=== PATIENT | male | born 1965 | race African-American/Black ===

== ENCOUNTER 2019-09-02 12:38 | Inpatient (IN) | payer OTHER ==
[2019-09-02 12:56] VITALS: BMI 28.7
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
[2019-09-02] MEDS ORDERED: chlordiazePOXIDE HCL 25 MG CAPSULE PO PRN (14:35)
[2019-09-02] MEDS ORDERED: MENTHOL/PHENOL 1 EACH UD MM PRN (14:35)
[2019-09-02] MEDS ORDERED: MAGNESIUM CITRATE 300 ML BOTTLE PO PRN (14:35)
[2019-09-02] MEDS ORDERED: ACETAMINOPHEN 325 MG TABLET (FP) PO PRN ×2 (14:35)
[2019-09-02] MEDS ORDERED: MAGNESIUM HYDROX 2400MG/30ML ORAL SUSPENSION 30 ML CUP PO PRN (14:35)
[2019-09-02] MEDS ORDERED: MAG HYDROX/AL HYDROX/SIMETH 30 ML UNIT-DOSE CUP PO PRN (14:35)
[2019-09-02] MEDS ORDERED: BISMUTH SUBSALICYLATE 262 MG/15 ML BTL PO PRN (14:35)
[2019-09-02] MEDS ORDERED: IBUPROFEN 400 MG TABLET (FP) PO PRN (14:35)
[2019-09-02] MEDS: METHOCARBAMOL 500 MG TABLET PO PRN ×2 (15:57→22:19)
[2019-09-02] MEDS: chlordiazePOXIDE HCL 25 MG CAPSULE PO SCH ×2 (17:17→22:06)
[2019-09-02] MEDS: TOLNAFTATE 1% CREAM 15 GM TUBE TP SCH (22:06)
[2019-09-02] MEDS: cloNIDine HCL 0.1 MG TABLET PO SCH (22:06)
[2019-09-02] MEDS: THIAMINE HCL 100 MG TABLET (FP) PO SCH (22:06)
[2019-09-02] MEDS: MELATONIN 5 MG TABLETS PO PRN (22:08)
[2019-09-02] MEDS: VITAMINS A AND D TOPICAL OINTMENT 60 GM TUBE TP SCH (22:22)
[2019-09-03] MEDS: chlordiazePOXIDE HCL 25 MG CAPSULE PO SCH ×4 (06:02→22:49)
[2019-09-03] MEDS: METHOCARBAMOL 500 MG TABLET PO PRN ×2 (06:02→18:03)
--- NOTE | 2019-09-03 09:01 | EKG ---
Test Reason : Blood Pressure : / mmHG Vent. Rate : 056 BPM Atrial Rate : 056 BPM P-R Int : 166 ms QRS Dur : 098 ms QT Int : 440 ms P-R-T Axes : 062 040 055 degrees QTc Int : 424 ms SINUS BRADYCARDIA VOLTAGE CRITERIA FOR LEFT VENTRICULAR HYPERTROPHY ABNORMAL ECG NO PREVIOUS ECGS AVAILABLE Confirmed by ALEXY GARZA MD ([id number]) on 09/03/2019 9:01:15 AM Referred By: Confirmed By:ALEXY GARZA MD
[2019-09-03 09:56] LABS: HEMATOCRIT 37.2 % (35.4-49); HEMOGLOBIN 12.1 GM/dL (11.7-16.9); MCH 30.7 pg (25.7-33.7); MCHC 32.4 g/dl (32.0-35.9); MEAN CELL VOLUME 94.8 fl (80-96); MEAN PLT VOLUME 8.7 fl (7.5-11.1); PLATELET COUNT 295 K/MM3 (134-434); RBC 3.93 M/mm3 (4.00-5.60); RDW 14.2 % (11.9-15.9); WHITE BLOOD COUNT 4.2 K/mm3 (4.0-10.0)
[2019-09-03 10:02] LABS: ALBUMIN 3.9 g/dl (3.4-5.0); BILIRUBIN,TOTAL 0.3 mg/dL (0.2-1); BLOOD UREA NITROGEN 14.2 mg/dL (7-18); CALCIUM 8.8 mg/dL (8.5-10.1); CREATININE 1.1 mg/dL (0.55-1.3); POTASSIUM 4.2 mmol/L (3.5-5.1); TOT PROT 6.9 g/dl (6.4-8.2)
[2019-09-03] MEDS: cloNIDine HCL 0.1 MG TABLET PO SCH ×2 (10:18→22:49)
[2019-09-03] MEDS: PRENATAL VITAMINS W/ FOLIC ACID TABLET (FP) PO SCH (10:18)
[2019-09-03] MEDS: TOLNAFTATE 1% CREAM 15 GM TUBE TP SCH ×2 (10:18→23:17)
--- NOTE | 2019-09-03 11:39 | PN ---
S CIWA - CIWA Score Nausea/Vomitin-No Nausea/No Vomiting Muscle Tremors: 3 Anxiety: 3 Agitation: 3 Paroxysmal Sweats: 3 Orientation: 0-Oriented Tacttile Disturbances: 0-None Auditory Disturbances: 0-None Visual Disturbances: 0-None Headache: 0-None Present CIWA-Ar Total Score: 12 S Progress Note (SOAP) Subjective: sweats shakes irritable interrupted sleep Objective: 09/03/19 11:45 Vital Signs Temperature 96.8 F L 09/03/19 09:33 Pulse Rate 75 09/03/19 09:33 Respiratory Rate 17 09/03/19 09:33 Blood Pressure 154/89 09/03/19 09:33 O2 Sat by Pulse Oximetry (%) Laboratory Tests 09/03/19 09/03/19 05:30 05:30 WBC 4.2 RBC 3.93 L Hgb 12.1 Hct 37.2 MCV 94.8 MCH 30.7 MCHC 32.4 RDW 14.2 Plt Count 295 MPV 8.7 Sodium 140 Potassium 4.2 Chloride 109 H Carbon Dioxide 26 Anion Gap 5 L BUN 14.2 Creatinine 1.1 Est GFR (CKD-EPI)AfAm 87.74 Est GFR (CKD-EPI)NonAf 75.70 Random Glucose 88 Calcium 8.8 Total Bilirubin 0.3 AST 14 L ALT 26 Alkaline Phosphatase 48 Total Protein 6.9 Albumin 3.9 aaox3 ambulating no acute distress Assessment: 09/03/19 11:45 withdrawals Plan: continue detox increase fluids
[2019-09-03] MEDS: hydrOXYzine PAMOATE 25 MG CAPSULE (FP) PO PRN (11:51)
[2019-09-03] MEDS: VITAMINS A AND D TOPICAL OINTMENT 60 GM TUBE TP SCH ×2 (15:38→23:18)
[2019-09-03] MEDS: THIAMINE HCL 100 MG TABLET (FP) PO SCH (22:49)
[2019-09-03] MEDS: MELATONIN 5 MG TABLETS PO PRN (22:50)
[2019-09-04] MEDS: chlordiazePOXIDE HCL 25 MG CAPSULE PO SCH ×4 (05:42→23:35)
[2019-09-04] MEDS: METHOCARBAMOL 500 MG TABLET PO PRN ×2 (05:43→21:35)
[2019-09-04] MEDS: PRENATAL VITAMINS W/ FOLIC ACID TABLET (FP) PO SCH (10:08)
[2019-09-04] MEDS: TOLNAFTATE 1% CREAM 15 GM TUBE TP SCH ×2 (10:09→21:36)
[2019-09-04] MEDS: VITAMINS A AND D TOPICAL OINTMENT 60 GM TUBE TP SCH ×2 (10:09→21:36)
[2019-09-04] MEDS: cloNIDine HCL 0.1 MG TABLET PO SCH (10:09)
[2019-09-04 10:47] LABS: URINE APPEARANCE CLEAR; URINE BILIRUBIN NEGATIVE (NEGATIVE); URINE COLOR YELLOW; URINE GLUCOSE (UA) NEGATIVE (NEGATIVE); URINE KETONE NEGATIVE (NEGATIVE); URINE LEUK ESTERASE NEGATIVE (NEGATIVE); URINE NITRITE NEGATIVE (NEGATIVE); URINE PROTEIN NEGATIVE (NEGATIVE); URINE UROBILINOGEN 0.2 mg/dL (0.2-1.0)
--- NOTE | 2019-09-04 15:02 | PN ---
[facility] CIWA - CIWA Score Nausea/Vomitin-Mild Nausea/No Vomiting Muscle Tremors: 2 Anxiety: 2 Agitation: 2 Paroxysmal Sweats: 2 Orientation: 0-Oriented Tacttile Disturbances: 0-None Auditory Disturbances: 0-None Visual Disturbances: 0-None Headache: 0-None Present CIWA-Ar Total Score: 9 S Progress Note (SOAP) Subjective: Sweat, knees hurting, nausea, feels a little unsteady (refused cane, patient seen ambulating in hallway with steady gait), interrupted sleep Objective: 09/04/19 14:57 Last Vital Signs Temp Pulse Resp BP Pulse Ox 98.2 F 83 18 158/89 09/04/19 09:31 09/04/19 09:31 09/04/19 09:31 09/04/19 09:31 Elevated b/p: has htn, presently on clonidine bid (noncompliant with home medication) Laboratory Tests 09/03/19 09/03/19 09/03/19 05:30 05:30 05:30 WBC 4.2 RBC 3.93 L Hgb 12.1 Hct 37.2 MCV 94.8 MCH 30.7 MCHC 32.4 RDW 14.2 Plt Count 295 MPV 8.7 Sodium 140 Potassium 4.2 Chloride 109 H Carbon Dioxide 26 Anion Gap 5 L BUN 14.2 Creatinine 1.1 Est GFR (CKD-EPI)AfAm 87.74 Est GFR (CKD-EPI)NonAf 75.70 Random Glucose 88 Calcium 8.8 Total Bilirubin 0.3 AST 14 L ALT 26 Alkaline Phosphatase 48 Total Protein 6.9 Albumin 3.9 Urine Color Urine Appearance Urine pH Ur Specific [place] Urine Protein Urine Glucose (UA) Urine Ketones Urine Blood Urine Nitrite Urine Bilirubin Urine Urobilinogen Ur Leukocyte Esterase RPR Titer Nonreactive 09/04/19 08:10 WBC RBC Hgb Hct MCV MCH MCHC RDW Plt Count MPV Sodium Potassium Chloride Carbon Dioxide Anion Gap BUN Creatinine Est GFR (CKD-EPI)AfAm Est GFR (CKD-EPI)NonAf Random Glucose Calcium Total Bilirubin AST ALT Alkaline Phosphatase Total Protein Albumin Urine Color Yellow Urine Appearance Clear Urine pH 5.0 Ur Specific [place] 1.010 Urine Protein Negative Urine Glucose (UA) Negative Urine Ketones Negative Urine Blood Negative Urine Nitrite Negative Urine Bilirubin Negative Urine Urobilinogen 0.2 Ur Leukocyte Esterase Negative RPR Titer Labs reviewed Assessment: 09/04/19 15:02 Withdrawal sxs Noted with HTN Plan: Continue detox Encouraged PO water intak HTN: noncompliant with medication, change bid clonidine to q8hr prn, follow up with PCP post discharge for management
[2019-09-04] MEDS: THIAMINE HCL 100 MG TABLET (FP) PO SCH (21:36)
[2019-09-04] MEDS: MELATONIN 5 MG TABLETS PO PRN (21:36)
[2019-09-05] MEDS ORDERED: chlordiazePOXIDE HCL 10 MG CAPSULE PO PRN
[2019-09-05] MEDS: hydrOXYzine PAMOATE 25 MG CAPSULE (FP) PO PRN ×3 (01:08→21:15)
[2019-09-05] MEDS: chlordiazePOXIDE HCL 10 MG CAPSULE PO SCH ×4 (06:14→22:19)
[2019-09-05] MEDS: METHOCARBAMOL 500 MG TABLET PO PRN ×2 (06:15→21:15)
--- NOTE | 2019-09-05 09:54 | PN ---
S CIWA - CIWA Score Nausea/Vomitin-Mild Nausea/No Vomiting Muscle Tremors: 1-None Visible, but [place] Anxiety: 1-Mildly Anxious Agitation: 1-Slight > Activity Paroxysmal Sweats: No Perspiration Orientation: 0-Oriented Tacttile Disturbances: 1-Very Mild Itch/Numbness Auditory Disturbances: 0-None Visual Disturbances: 0-None Headache: 1-Very Mild CIWA-Ar Total Score: 6 BHS Progress Note (SOAP) Subjective: alert,irritable,anxious,interrupted sleep Objective: 09/05/19 09:53 Vital Signs Temperature 98.1 F 09/05/19 05:00 Pulse Rate 76 09/05/19 05:00 Respiratory Rate 20 09/05/19 05:00 Blood Pressure 171/101 H 09/05/19 05:00 O2 Sat by Pulse Oximetry (%) Assessment: 09/05/19 09:53 withdrawal symptom Plan: continue detox librium regimen,discharg ein am
[2019-09-05] MEDS: PRENATAL VITAMINS W/ FOLIC ACID TABLET (FP) PO SCH (10:06)
[2019-09-05] MEDS: VITAMINS A AND D TOPICAL OINTMENT 60 GM TUBE TP SCH ×2 (10:07→22:20)
[2019-09-05] MEDS: TOLNAFTATE 1% CREAM 15 GM TUBE TP SCH ×2 (15:21→22:20)
[2019-09-05] MEDS: cloNIDine HCL 0.1 MG TABLET PO PRN (17:01)
[2019-09-05] MEDS: MELATONIN 5 MG TABLETS PO PRN (22:19)
[2019-09-05] MEDS: THIAMINE HCL 100 MG TABLET (FP) PO SCH (22:19)
[2019-09-06] MEDS ORDERED: chlordiazePOXIDE HCL 10 MG CAPSULE PO SCH (05:00)
[2019-09-06] MEDS: METHOCARBAMOL 500 MG TABLET PO PRN (05:21)
[2019-09-06] MEDS: cloNIDine HCL 0.1 MG TABLET PO PRN (05:21)
[2019-09-06 08:36] VITALS: TEMP 98.1
[2019-09-06 08:40] VITALS: BP 142/82; PULSE 73
--- NOTE | 2019-09-06 09:28 | DS ---
[facility] Detox Discharge Summary Admission Date: 09/02/19 Discharge Date: 09/06/19 - History Present History: Alcohol Dependence, Opioid Dependence - Physical Exam Results Vital Signs: Vital Signs Temperature 98.1 F 09/06/19 05:00 Pulse Rate 73 09/06/19 07:38 Respiratory Rate 18 09/06/19 07:38 Blood Pressure 142/82 09/06/19 07:38 O2 Sat by Pulse Oximetry (%) Pertinent Admission Physical Exam Findings: Vital Signs Temperature 98.1 F 09/06/19 05:00 Pulse Rate 73 09/06/19 07:38 Respiratory Rate 18 09/06/19 07:38 Blood Pressure 142/82 09/06/19 07:38 O2 Sat by Pulse Oximetry (%) Laboratory Tests 09/03/19 09/03/19 09/03/19 05:30 05:30 05:30 WBC 4.2 RBC 3.93 L Hgb 12.1 Hct 37.2 MCV 94.8 MCH 30.7 MCHC 32.4 RDW 14.2 Plt Count 295 MPV 8.7 Sodium 140 Potassium 4.2 Chloride 109 H Carbon Dioxide 26 Anion Gap 5 L BUN 14.2 Creatinine 1.1 Est GFR (CKD-EPI)AfAm 87.74 Est GFR (CKD-EPI)NonAf 75.70 Random Glucose 88 Calcium 8.8 Total Bilirubin 0.3 AST 14 L ALT 26 Alkaline Phosphatase 48 Total Protein 6.9 Albumin 3.9 Urine Color Urine Appearance Urine pH Ur Specific [place] Urine Protein Urine Glucose (UA) Urine Ketones Urine Blood Urine Nitrite Urine Bilirubin Urine Urobilinogen Ur Leukocyte Esterase RPR Titer Nonreactive 09/04/19 08:10 WBC RBC Hgb Hct MCV MCH MCHC RDW Plt Count MPV Sodium Potassium Chloride Carbon Dioxide Anion Gap BUN Creatinine Est GFR (CKD-EPI)AfAm Est GFR (CKD-EPI)NonAf Random Glucose Calcium Total Bilirubin AST ALT Alkaline Phosphatase Total Protein Albumin Urine Color Yellow Urine Appearance Clear Urine pH 5.0 Ur Specific [place] 1.010 Urine Protein Negative Urine Glucose (UA) Negative Urine Ketones Negative Urine Blood Negative Urine Nitrite Negative Urine Bilirubin Negative Urine Urobilinogen 0.2 Ur Leukocyte Esterase Negative RPR Titer aaox3 ambulating no acute distress - Treatment Hospital Course: Detox Protocol Followed, Detoxed Safely, Responded well, Discharged Condition Good, Rehab Referral Accepted Patient has Accepted a Rehab Referral to: pt referred to [facility] OTP - Medication Discharge Medications: Ambulatory Orders NK [No Known Home Medication] 09/02/19 - Diagnosis (1) ADHD Current Visit: Yes Status: Acute (2) Alcohol dependence with uncomplicated withdrawal Current Visit: Yes Status: Chronic (3) Anxiety and depression Current Visit: Yes Status: Acute (4) Dry skin Current Visit: Yes Status: Acute (5) Heroin abuse Current Visit: No Status: Suspected (6) Tinea pedis Current Visit: Yes Status: Acute - AMA Did Patient Leave Against Medical Advice: No
[2019-09-06] MEDS: PRENATAL VITAMINS W/ FOLIC ACID TABLET (FP) PO SCH (10:27)
[2019-09-06] MEDS: TOLNAFTATE 1% CREAM 15 GM TUBE TP SCH (10:28)
[2019-09-06] MEDS: VITAMINS A AND D TOPICAL OINTMENT 60 GM TUBE TP SCH (10:28)
[2019-09-07] MEDS ORDERED: chlordiazePOXIDE HCL 10 MG CAPSULE PO ONE (05:00)
== END 2019-09-06 10:52 | disposition home or self-care (01) | DRG 773 ==
LOC: YASAS 12:38 → Y6N 14:47
PROVIDERS: ADMIT Allergy & Immunology; ATTEND Allergy & Immunology
PROC: HZ2ZZZZ Detoxification Services for Substance Abuse Treatment (ICD-10-PCS; principal; 2019-09-02)
DX: F10.230 Alcohol dependence with withdrawal, uncomplicated (principal); F11.10 Opioid abuse, uncomplicated; F90.9 Attention-deficit hyperactivity disorder, unspecified type; F32.9 Major depressive disorder, single episode, unspecified; F41.9 Anxiety disorder, unspecified; I10 Essential (primary) hypertension; L98.8 Other specified disorders of the skin and subcutaneous tissue; B35.3 Tinea pedis; E78.5 Hyperlipidemia, unspecified; J45.909 Unspecified asthma, uncomplicated; Z91.018 Allergy to other foods; Z91.14 Patient's other noncompliance with medication regimen; Z56.0 Unemployment, unspecified
CPT/HCPCS: 36415; 71046-TC-FY; 80053; 81003; 85027; 86593; 93005; 93010; J0735

== ENCOUNTER 2019-10-17 13:24 | Inpatient (IN) | payer OTHER ==
--- NOTE | 2019-10-17 13:45 | BHS.RME ---
Substance Use & Tx History - Substance Use History Opiates (Heroin) Substance amount: 8 bags Frequency of use: Daily Substance route: Inhalation (ex: sniffing or snorting) Date of Last Use: 10/17/19 Alcohol Substance amount: 2 x 40 ounce plus 6 pack x 16 ounce Frequency of use: More than 3 times per week Substance route: Oral Date of Last Use: 10/15/19 Physical/Psych/Mental Status - Behavior Eye Contact: Normal - Cooperativeness Cooperativeness: Cooperative - Thinking Thought Processes: Tight Thought content: Future oriented - Physical Health Problems Is patient presently having any pain?: No Does patient presently have any injuries (include location): No Does patient currently have a fever: No COWS - Scale Resting Pulse: 0= [place] 80 or Below Sweatin= Chills/Flushing Restless Observation: 1= Difficult to Sit Still Pupil Size: 0= Normal to Room Light Bone or Joint Aches: 1= Mild Discomfort Runny Nose/ Eye Tearin= Nasal Congestion GI Upset > 30mins: 0= None Tremor Observation: 0= None Yawning Observation: 0= None Anxiety or Irritability: 1=Feels Anxious/Irritable Goose Flesh Skin: 0=Smooth Skin COWS Score: 5
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
[2019-10-17] MEDS ORDERED: cloNIDine HCL 0.1 MG TABLET PO PRN (15:19)
[2019-10-17] MEDS ORDERED: MAGNESIUM CITRATE 300 ML BOTTLE PO PRN (15:19)
[2019-10-17] MEDS ORDERED: MENTHOL/PHENOL 1 EACH UD MM PRN (15:19)
[2019-10-17] MEDS ORDERED: MAGNESIUM HYDROX 2400MG/30ML ORAL SUSPENSION 30 ML CUP PO PRN (15:19)
[2019-10-17] MEDS ORDERED: MAG HYDROX/AL HYDROX/SIMETH 30 ML UNIT-DOSE CUP PO PRN (15:19)
[2019-10-17] MEDS ORDERED: chlordiazePOXIDE HCL 25 MG CAPSULE PO PRN (15:19)
[2019-10-17] MEDS ORDERED: ACETAMINOPHEN 325 MG TABLET (FP) PO PRN ×2 (15:19)
[2019-10-17] MEDS ORDERED: BISMUTH SUBSALICYLATE 262 MG/15 ML BTL PO PRN (15:19)
[2019-10-17] MEDS ORDERED: METHADONE HCL 10 MG TABLET (FOR DETOX USE ONLY) PO ONE (15:39)
[2019-10-17 15:54] VITALS: BMI 29.8
[2019-10-17] MEDS: chlordiazePOXIDE HCL 25 MG CAPSULE PO SCH ×2 (16:52→22:07)
[2019-10-17 18:17] LABS: ALBUMIN 3.5 g/dl (3.4-5.0); BILIRUBIN,TOTAL 0.3 mg/dL (0.2-1); BLOOD UREA NITROGEN 13.1 mg/dL (7-18); CALCIUM 8.8 mg/dL (8.5-10.1); CREATININE 1.2 mg/dL (0.55-1.3); POTASSIUM 3.9 mmol/L (3.5-5.1); TOT PROT 6.7 g/dl (6.4-8.2)
[2019-10-17 19:04] LABS: HEMATOCRIT 32.5 % (35.4-49); HEMOGLOBIN 10.8 GM/dL (11.7-16.9); MCH 31.2 pg (25.7-33.7); MCHC 33.1 g/dl (32.0-35.9); MEAN CELL VOLUME 94.2 fl (80-96); MEAN PLT VOLUME 7.9 fl (7.5-11.1); PLATELET COUNT 289 K/MM3 (134-434); RBC 3.46 M/mm3 (4.00-5.60); RDW 14.6 % (11.9-15.9); WHITE BLOOD COUNT 3.8 K/mm3 (4.0-10.0)
[2019-10-17] MEDS: THIAMINE HCL 100 MG TABLET (FP) PO SCH (22:07)
[2019-10-17] MEDS: MELATONIN 5 MG TABLETS PO PRN (22:07)
[2019-10-17] MEDS: METHOCARBAMOL 500 MG TABLET PO PRN (23:01)
[2019-10-17] MEDS: hydrOXYzine PAMOATE 25 MG CAPSULE (FP) PO PRN (23:01)
[2019-10-18] MEDS: chlordiazePOXIDE HCL 25 MG CAPSULE PO SCH ×4 (05:42→22:07)
[2019-10-18] MEDS ORDERED: METHADONE HCL 10 MG TABLET (FOR DETOX USE ONLY) ONE (08:41)
[2019-10-18] MEDS ORDERED: METHADONE HCL 5 MG TABLET (FOR DETOX USE ONLY) ONE (08:42)
[2019-10-18] MEDS ORDERED: cloNIDine HCL 0.1 MG TABLET PO PRN (08:54)
--- NOTE | 2019-10-18 08:58 | PN ---
[facility] CIWA - CIWA Score Nausea/Vomitin-No Nausea/No Vomiting Muscle Tremors: 4-Moderate,w/Arms Extend Anxiety: 4-Mod. Anxious/Guarded Agitation: 0-Normal Activity Paroxysmal Sweats: 2 Orientation: 1-Uncertain about Date Tacttile Disturbances: 0-None Auditory Disturbances: 0-None Visual Disturbances: 1-Very Mild Sensitivity Headache: 0-None Present CIWA-Ar Total Score: 12 S COWS - Scale Resting Pulse: 0= [place] 80 or Below Sweatin= Chills/Flushing Restless Observation: 0= Sits Still Pupil Size: 1= Pupils >than Normal Bone or Joint Aches: 1= Mild Discomfort Runny Nose/ Eye Tearin= None GI Upset > 30mins: 0= None Tremor Observation of Outstretched Hands: 2= Slight Tremor Visible Yawning Observation: 0= None Anxiety or Irritability: 0= None Goose Flesh Skin: 3=Piloerection COWS Score: 8 S Progress Note (SOAP) Subjective: 53 years old male admitted on 10/17/19 for alcohol and opiate withdrawal sx management treating with librium and methadone detox regiments c/o fungal toes dry flaky white skin peeling between toes clotrimazole cream c/o dry skin dry rough skin on hands and elbow a and d ointment Objective: 10/18/19 08:58 Vital Signs Temperature 98.4 F 10/18/19 06:40 Pulse Rate 65 10/18/19 06:40 Respiratory Rate 18 10/18/19 06:40 Blood Pressure 153/96 10/18/19 06:40 O2 Sat by Pulse Oximetry (%) Laboratory Last Values WBC 3.8 K/mm3 (4.0-10.0) L 10/17/19 15:15 RBC 3.46 M/mm3 (4.00-5.60) L 10/17/19 15:15 Hgb 10.8 GM/dL (11.7-16.9) L 10/17/19 15:15 Hct 32.5 % (35.4-49) L 10/17/19 15:15 MCV 94.2 fl (80-96) 10/17/19 15:15 MCH 31.2 pg (25.7-33.7) 10/17/19 15:15 MCHC 33.1 g/dl (32.0-35.9) 10/17/19 15:15 RDW 14.6 % (11.9-15.9) 10/17/19 15:15 Plt Count 289 K/MM3 (134-434) 10/17/19 15:15 MPV 7.9 fl (7.5-11.1) 10/17/19 15:15 Sodium 139 mmol/L (136-145) 10/17/19 15:15 Potassium 3.9 mmol/L (3.5-5.1) 10/17/19 15:15 Chloride 106 mmol/L (98-107) 10/17/19 15:15 Carbon Dioxide 27 mmol/L (21-32) 10/17/19 15:15 Anion Gap 6 MMOL/L (8-16) L 10/17/19 15:15 BUN 13.1 mg/dL (7-18) 10/17/19 15:15 Creatinine 1.2 mg/dL (0.55-1.3) 10/17/19 15:15 Est GFR (CKD-EPI)AfAm 78.98 10/17/19 15:15 Est GFR (CKD-EPI)NonAf 68.14 10/17/19 15:15 Random Glucose 134 mg/dL (74-106) H 10/17/19 15:15 Calcium 8.8 mg/dL (8.5-10.1) 10/17/19 15:15 Total Bilirubin 0.3 mg/dL (0.2-1) 10/17/19 15:15 AST 17 U/L (15-37) 10/17/19 15:15 ALT 23 U/L (13-61) 10/17/19 15:15 Alkaline Phosphatase 54 U/L (45-117) 10/17/19 15:15 Total Protein 6.7 g/dl (6.4-8.2) 10/17/19 15:15 Albumin 3.5 g/dl (3.4-5.0) 10/17/19 15:15 lab noted 10/18/19 08:58 fasting sugar 10/18/19 09:03 bp elevation begin amlodipine 5 mg po clonidine 0.1mg po q6h prn Assessment: 10/18/19 09:04 alcohol and opiate withdrawal Plan: librium and methadone regiments
[2019-10-18] MEDS ORDERED: METHADONE (DETOX) 20 MG, METHADONE (DETOX) 5 MG PO ONE (10:00)
[2019-10-18] MEDS: CLOTRIMAZOLE 1% CREAM 15 GM TUBE TP SCH ×2 (10:27→22:07)
[2019-10-18] MEDS: METHOCARBAMOL 500 MG TABLET PO PRN (10:27)
[2019-10-18] MEDS: PRENATAL VITAMINS W/ FOLIC ACID TABLET (FP) PO SCH (10:27)
[2019-10-18] MEDS: VITAMINS A AND D TOPICAL OINTMENT 60 GM TUBE TP SCH ×3 (10:28→22:07)
[2019-10-18] MEDS: THIAMINE HCL 100 MG TABLET (FP) PO SCH (22:06)
[2019-10-18] MEDS: amLODIPine BESYLATE 5 MG TABLET (FP) PO SCH (22:06)
[2019-10-18] MEDS: MELATONIN 5 MG TABLETS PO PRN (22:08)
[2019-10-18] MEDS: hydrOXYzine PAMOATE 25 MG CAPSULE (FP) PO PRN (22:09)
[2019-10-19] MEDS: VITAMINS A AND D TOPICAL OINTMENT 60 GM TUBE TP SCH ×4 (05:00→23:15)
[2019-10-19] MEDS: chlordiazePOXIDE HCL 25 MG CAPSULE PO SCH ×4 (05:35→22:30)
[2019-10-19] MEDS ORDERED: METHADONE HCL 10 MG TABLET (FOR DETOX USE ONLY) PO ONE (10:00)
[2019-10-19] MEDS: PRENATAL VITAMINS W/ FOLIC ACID TABLET (FP) PO SCH (10:43)
[2019-10-19] MEDS: amLODIPine BESYLATE 5 MG TABLET (FP) PO SCH (10:43)
[2019-10-19] MEDS: CLOTRIMAZOLE 1% CREAM 15 GM TUBE TP SCH ×2 (10:44→22:32)
--- NOTE | 2019-10-19 11:39 | PN ---
[facility] CIWA - CIWA Score Nausea/Vomitin-No Nausea/No Vomiting Muscle Tremors: 2 Anxiety: 2 Agitation: 0-Normal Activity Paroxysmal Sweats: 2 Orientation: 0-Oriented Tacttile Disturbances: 0-None Auditory Disturbances: 0-None Visual Disturbances: 0-None Headache: 1-Very Mild CIWA-Ar Total Score: 7 S COWS - Scale Resting Pulse: 0= [place] 80 or Below Sweatin= Chills/Flushing Restless Observation: 0= Sits Still Pupil Size: 1= Pupils >than Normal Bone or Joint Aches: 1= Mild Discomfort Runny Nose/ Eye Tearin= Nasal Congestion GI Upset > 30mins: 0= None Tremor Observation of Outstretched Hands: 2= Slight Tremor Visible Yawning Observation: 0= None Anxiety or Irritability: 1=Feels Anxious/Irritable Goose Flesh Skin: 0=Smooth Skin COWS Score: 7 S Progress Note (SOAP) Subjective: 53 years old male admitted on 10/17/19 for alcohol withdrawal sx management treating with librium and methadone detox regiment reports stuffy nose no trouble mouth assisting breathing from time to time skin warm and dry alert oriented x 3 no acute distress flonase nasal spray Objective: 10/19/19 11:38 Vital Signs Temperature 98.8 F 10/19/19 09:12 Pulse Rate 79 10/19/19 09:12 Respiratory Rate 18 10/19/19 09:12 Blood Pressure 148/88 10/19/19 09:12 O2 Sat by Pulse Oximetry (%) Laboratory Last Values WBC 3.8 K/mm3 (4.0-10.0) L 10/17/19 15:15 RBC 3.46 M/mm3 (4.00-5.60) L 10/17/19 15:15 Hgb 10.8 GM/dL (11.7-16.9) L 10/17/19 15:15 Hct 32.5 % (35.4-49) L 10/17/19 15:15 MCV 94.2 fl (80-96) 10/17/19 15:15 MCH 31.2 pg (25.7-33.7) 10/17/19 15:15 MCHC 33.1 g/dl (32.0-35.9) 10/17/19 15:15 RDW 14.6 % (11.9-15.9) 10/17/19 15:15 Plt Count 289 K/MM3 (134-434) 10/17/19 15:15 MPV 7.9 fl (7.5-11.1) 10/17/19 15:15 Sodium 139 mmol/L (136-145) 10/17/19 15:15 Potassium 3.9 mmol/L (3.5-5.1) 10/17/19 15:15 Chloride 106 mmol/L (98-107) 10/17/19 15:15 Carbon Dioxide 27 mmol/L (21-32) 10/17/19 15:15 Anion Gap 6 MMOL/L (8-16) L 10/17/19 15:15 BUN 13.1 mg/dL (7-18) 10/17/19 15:15 Creatinine 1.2 mg/dL (0.55-1.3) 10/17/19 15:15 Est GFR (CKD-EPI)AfAm 78.98 10/17/19 15:15 Est GFR (CKD-EPI)NonAf 68.14 10/17/19 15:15 Random Glucose 134 mg/dL (74-106) H 10/17/19 15:15 Calcium 8.8 mg/dL (8.5-10.1) 10/17/19 15:15 Total Bilirubin 0.3 mg/dL (0.2-1) 10/17/19 15:15 AST 17 U/L (15-37) 10/17/19 15:15 ALT 23 U/L (13-61) 10/17/19 15:15 Alkaline Phosphatase 54 U/L (45-117) 10/17/19 15:15 Total Protein 6.7 g/dl (6.4-8.2) 10/17/19 15:15 Albumin 3.5 g/dl (3.4-5.0) 10/17/19 15:15 RPR Titer Nonreactive (NONREACTIVE) 10/17/19 15:15 10/19/19 11:38 lab noted glucose elevation 10/18/19 fasting glucose cancelled reorder for 10/20/19 10/19/19 11:40 Assessment: 10/19/19 11:41 alcohol and opiate withdrawal Plan: librium and methadone regiments
[2019-10-19] MEDS: FLUTICASONE PROP 0.05% 16 GM NASAL SPRAY NS SCH ×2 (13:15→22:30)
[2019-10-19] MEDS: THIAMINE HCL 100 MG TABLET (FP) PO SCH (22:30)
[2019-10-19] MEDS: MELATONIN 5 MG TABLETS PO PRN (22:34)
[2019-10-20] MEDS ORDERED: chlordiazePOXIDE HCL 10 MG CAPSULE PO PRN
[2019-10-20] MEDS: chlordiazePOXIDE HCL 10 MG CAPSULE PO SCH ×4 (05:59→22:14)
[2019-10-20] MEDS: VITAMINS A AND D TOPICAL OINTMENT 60 GM TUBE TP SCH ×4 (06:01→22:16)
[2019-10-20] MEDS ORDERED: METHADONE HCL 10 MG TABLET (FOR DETOX USE ONLY) ONE (08:40)
[2019-10-20] MEDS ORDERED: METHADONE HCL 5 MG TABLET (FOR DETOX USE ONLY) ONE (08:41)
[2019-10-20] MEDS ORDERED: METHADONE (DETOX) 10 MG, METHADONE (DETOX) 5 MG PO ONE (10:00)
[2019-10-20] MEDS: CLOTRIMAZOLE 1% CREAM 15 GM TUBE TP SCH ×2 (10:42→22:16)
[2019-10-20] MEDS: amLODIPine BESYLATE 5 MG TABLET (FP) PO SCH (10:42)
[2019-10-20] MEDS: FLUTICASONE PROP 0.05% 16 GM NASAL SPRAY NS SCH ×2 (10:42→23:06)
[2019-10-20] MEDS: PRENATAL VITAMINS W/ FOLIC ACID TABLET (FP) PO SCH (10:45)
--- NOTE | 2019-10-20 12:44 | PN ---
[facility] CIWA - CIWA Score Nausea/Vomitin-No Nausea/No Vomiting Muscle Tremors: 2 Anxiety: 1-Mildly Anxious Agitation: 0-Normal Activity Paroxysmal Sweats: 2 Orientation: 0-Oriented Tacttile Disturbances: 0-None Auditory Disturbances: 0-None Visual Disturbances: 1-Very Mild Sensitivity Headache: 0-None Present CIWA-Ar Total Score: 6 S COWS - Scale Resting Pulse: 1= [place] 81-100 Sweatin= Chills/Flushing Restless Observation: 0= Sits Still Pupil Size: 0= Normal to Room Light Bone or Joint Aches: 1= Mild Discomfort Runny Nose/ Eye Tearin= None GI Upset > 30mins: 0= None Tremor Observation of Outstretched Hands: 2= Slight Tremor Visible Yawning Observation: 0= None Anxiety or Irritability: 1=Feels Anxious/Irritable Goose Flesh Skin: 0=Smooth Skin COWS Score: 6 S Progress Note (SOAP) Subjective: 53 years old male admitted on 10/17/19 for alcohol and opiate withdrawal sx management treating wtih librium and methadone detox regiments feeling ok today less tremor mild restlessness Objective: 10/20/19 12:42 Vital Signs Temperature 97.1 F L 10/20/19 08:30 Pulse Rate 89 10/20/19 08:30 Respiratory Rate 18 10/20/19 08:30 Blood Pressure 139/83 10/20/19 08:30 O2 Sat by Pulse Oximetry (%) Laboratory Last Values WBC 3.8 K/mm3 (4.0-10.0) L 10/17/19 15:15 RBC 3.46 M/mm3 (4.00-5.60) L 10/17/19 15:15 Hgb 10.8 GM/dL (11.7-16.9) L 10/17/19 15:15 Hct 32.5 % (35.4-49) L 10/17/19 15:15 MCV 94.2 fl (80-96) 10/17/19 15:15 MCH 31.2 pg (25.7-33.7) 10/17/19 15:15 MCHC 33.1 g/dl (32.0-35.9) 10/17/19 15:15 RDW 14.6 % (11.9-15.9) 10/17/19 15:15 Plt Count 289 K/MM3 (134-434) 10/17/19 15:15 MPV 7.9 fl (7.5-11.1) 10/17/19 15:15 Sodium 139 mmol/L (136-145) 10/17/19 15:15 Potassium 3.9 mmol/L (3.5-5.1) 10/17/19 15:15 Chloride 106 mmol/L (98-107) 10/17/19 15:15 Carbon Dioxide 27 mmol/L (21-32) 10/17/19 15:15 Anion Gap 6 MMOL/L (8-16) L 10/17/19 15:15 BUN 13.1 mg/dL (7-18) 10/17/19 15:15 Creatinine 1.2 mg/dL (0.55-1.3) 10/17/19 15:15 Est GFR (CKD-EPI)AfAm 78.98 10/17/19 15:15 Est GFR (CKD-EPI)NonAf 68.14 10/17/19 15:15 Random Glucose 134 mg/dL (74-106) H 10/17/19 15:15 Calcium 8.8 mg/dL (8.5-10.1) 10/17/19 15:15 Total Bilirubin 0.3 mg/dL (0.2-1) 10/17/19 15:15 AST 17 U/L (15-37) 10/17/19 15:15 ALT 23 U/L (13-61) 10/17/19 15:15 Alkaline Phosphatase 54 U/L (45-117) 10/17/19 15:15 Total Protein 6.7 g/dl (6.4-8.2) 10/17/19 15:15 Albumin 3.5 g/dl (3.4-5.0) 10/17/19 15:15 RPR Titer Nonreactive (NONREACTIVE) 10/17/19 15:15 lab noted 10/20/19 12:45 fasting glucose had been cancelled x 2 Assessment: 10/20/19 12:45 alcohol and opiate withdrawal Plan: librium and methadone regiments
[2019-10-20] MEDS ORDERED: cloNIDine HCL 0.1 MG TABLET PO ONE (13:30)
[2019-10-20] MEDS: hydrOXYzine PAMOATE 25 MG CAPSULE (FP) PO PRN (22:14)
[2019-10-20] MEDS: MELATONIN 5 MG TABLETS PO PRN (22:14)
[2019-10-20] MEDS: THIAMINE HCL 100 MG TABLET (FP) PO SCH (22:14)
[2019-10-21] MEDS: amLODIPine BESYLATE 10 MG TABLET (FP) PO SCH (05:01)
[2019-10-21] MEDS: chlordiazePOXIDE HCL 10 MG CAPSULE PO SCH ×2 (05:01→17:21)
[2019-10-21] MEDS: VITAMINS A AND D TOPICAL OINTMENT 60 GM TUBE TP SCH ×4 (06:00→21:20)
[2019-10-21] MEDS: IBUPROFEN 400 MG TABLET (FP) PO PRN ×2 (09:16→18:18)
[2019-10-21] MEDS ORDERED: METHADONE HCL 10 MG TABLET (FOR DETOX USE ONLY) PO ONE (10:00)
[2019-10-21] MEDS: PRENATAL VITAMINS W/ FOLIC ACID TABLET (FP) PO SCH (10:26)
[2019-10-21] MEDS: CLOTRIMAZOLE 1% CREAM 15 GM TUBE TP SCH ×2 (10:27→21:20)
[2019-10-21] MEDS: FLUTICASONE PROP 0.05% 16 GM NASAL SPRAY NS SCH ×2 (10:28→21:16)
[2019-10-21] MEDS: METHOCARBAMOL 500 MG TABLET PO PRN ×2 (11:45→18:18)
--- NOTE | 2019-10-21 12:05 | PN ---
[facility] CIWA - CIWA Score Nausea/Vomitin-No Nausea/No Vomiting Muscle Tremors: None Anxiety: 0-No Anxiety, at Ease Agitation: 0-Normal Activity Paroxysmal Sweats: No Perspiration Orientation: 0-Oriented Tacttile Disturbances: 0-None Auditory Disturbances: 0-None Visual Disturbances: 0-None Headache: 0-None Present CIWA-Ar Total Score: [address] [facility] COWS - Scale Resting Pulse: 0= [place] 80 or Below Sweatin= No chills or Flushing Restless Observation: 0= Sits Still Pupil Size: 0= Normal to Room Light Bone or Joint Aches: 1= Mild Discomfort Runny Nose/ Eye Tearin= None GI Upset > 30mins: 0= None Tremor Observation of Outstretched Hands: 0= None Yawning Observation: 0= None Anxiety or Irritability: 0= None Goose Flesh Skin: 0=Smooth Skin COWS Score: [address] [facility] Progress Note (SOAP) Subjective: complains of bilat knee pain that he attributes to withdrawal planning on going home tomorrow then to rehab Objective: 10/21/19 12:02 Laboratory Tests 10/17/19 10/17/19 10/17/19 15:15 15:15 15:15 WBC 3.8 L RBC 3.46 L Hgb 10.8 L Hct 32.5 L MCV 94.2 MCH 31.2 MCHC 33.1 RDW 14.6 Plt Count 289 MPV 7.9 Sodium 139 Potassium 3.9 Chloride 106 Carbon Dioxide 27 Anion Gap 6 L BUN 13.1 Creatinine 1.2 Est GFR (CKD-EPI)AfAm 78.98 Est GFR (CKD-EPI)NonAf 68.14 Random Glucose 134 H Calcium 8.8 Total Bilirubin 0.3 AST 17 ALT 23 Alkaline Phosphatase 54 Total Protein 6.7 Albumin 3.5 RPR Titer Nonreactive PE gnl: WDWN, in no distress MS: awake, alert, nl language function Motor: nl Gait: steady Coord: nl Assessment: 10/21/19 12:03 1. alcohol use disorder 2. opioid use disorder 3. knee pain may be due to withdrawal from opioids 4. anemia Plan: 1. continue Librium withdrawal 2. continue methadone withdrawal protocol 3. ibuprofen for knee pain, topical menthol patch 4. Fe panel for anemia workup 5. pending d/c in am
[2019-10-21 17:49] LABS: IRON SERUM 45 ug/dL (50-175); TOTAL IRON BINDING CAPACITY 288 ug/dL (250-450)
[2019-10-21] MEDS: THIAMINE HCL 100 MG TABLET (FP) PO SCH (21:17)
[2019-10-21] MEDS: hydrOXYzine PAMOATE 25 MG CAPSULE (FP) PO PRN (21:17)
[2019-10-21] MEDS: MELATONIN 5 MG TABLETS PO PRN (21:17)
[2019-10-22] MEDS: METHOCARBAMOL 500 MG TABLET PO PRN (01:03)
[2019-10-22] MEDS ORDERED: chlordiazePOXIDE HCL 10 MG CAPSULE PO ONE (05:00)
[2019-10-22] MEDS: amLODIPine BESYLATE 10 MG TABLET (FP) PO SCH (05:52)
[2019-10-22] MEDS ORDERED: METHADONE HCL 5 MG TABLET (FOR DETOX USE ONLY) PO ONE (06:00)
[2019-10-22 07:09] VITALS: BP 154/86; PULSE 83; TEMP 98
[2019-10-22] MEDS: VITAMINS A AND D TOPICAL OINTMENT 60 GM TUBE TP SCH (08:17)
--- NOTE | 2019-10-22 12:46 | DS ---
[facility] Detox Discharge Summary Admission Date: 10/17/19 Discharge Date: 10/22/19 - History Present History: Alcohol Dependence, Opioid Dependence Additional Comments: As per H&P: "Mr. Valle is a 53 yo gentleman who presents to [facility] stating "I need heroin and alcohol detox". He was last seen here between September 02 and 2019. He was treated with a Librium detox. He was not treated for heroin during that admission. He states he relapsed on or about October 07". Pt is medically cleared and discharged today. Pt completed the detox protocol. Pt is encouraged to follow-up with an outpatient CD program and also to follow- up with his pmd. Pt verbalized understanding of the information given. Pt is alert and oriented x3 and in no acute respiratory distress. Pertinent Past History: H/o HTN, dyslipidemia, alcohol, and heroin use disorder. - Physical Exam Results Vital Signs: Vital Signs Temperature 98 F 10/22/19 07:07 Pulse Rate 83 10/22/19 07:07 Respiratory Rate 18 10/22/19 07:07 Blood Pressure 154/86 10/22/19 07:07 O2 Sat by Pulse Oximetry (%) Vital Signs 10/22/19 07:07 Temperature 98 F Pulse Rate 83 Respiratory 18 Rate Blood Pressure 154/86 Laboratory Last Values WBC 3.8 K/mm3 (4.0-10.0) L 10/17/19 15:15 RBC 3.46 M/mm3 (4.00-5.60) L 10/17/19 15:15 Hgb 10.8 GM/dL (11.7-16.9) L 10/17/19 15:15 Hct 32.5 % (35.4-49) L 10/17/19 15:15 MCV 94.2 fl (80-96) 10/17/19 15:15 MCH 31.2 pg (25.7-33.7) 10/17/19 15:15 MCHC 33.1 g/dl (32.0-35.9) 10/17/19 15:15 RDW 14.6 % (11.9-15.9) 10/17/19 15:15 Plt Count 289 K/MM3 (134-434) 10/17/19 15:15 MPV 7.9 fl (7.5-11.1) 10/17/19 15:15 Sodium 139 mmol/L (136-145) 10/17/19 15:15 Potassium 3.9 mmol/L (3.5-5.1) 10/17/19 15:15 Chloride 106 mmol/L (98-107) 10/17/19 15:15 Carbon Dioxide 27 mmol/L (21-32) 10/17/19 15:15 Anion Gap 6 MMOL/L (8-16) L 10/17/19 15:15 BUN 13.1 mg/dL (7-18) 10/17/19 15:15 Creatinine 1.2 mg/dL (0.55-1.3) 10/17/19 15:15 Est GFR (CKD-EPI)AfAm 78.98 10/17/19 15:15 Est GFR (CKD-EPI)NonAf 68.14 10/17/19 15:15 Random Glucose 134 mg/dL (74-106) H 10/17/19 15:15 Calcium 8.8 mg/dL (8.5-10.1) 10/17/19 15:15 Iron 45 ug/dL (50-175) L 10/21/19 12:40 TIBC 288 ug/dL (250-450) 10/21/19 12:40 Iron Saturation 15 % (17.5-39) L 10/21/19 12:40 Unsaturated IBC 243 ug/dL (200-275) 10/21/19 12:40 Total Bilirubin 0.3 mg/dL (0.2-1) 10/17/19 15:15 AST 17 U/L (15-37) 10/17/19 15:15 ALT 23 U/L (13-61) 10/17/19 15:15 Alkaline Phosphatase 54 U/L (45-117) 10/17/19 15:15 Total Protein 6.7 g/dl (6.4-8.2) 10/17/19 15:15 Albumin 3.5 g/dl (3.4-5.0) 10/17/19 15:15 RPR Titer Nonreactive (NONREACTIVE) 10/17/19 15:15 HIV 1&2 Ag/Ab, 4th Gen Non reactive (Non Reactive) 10/21/19 12:40 Labs noted. Pertinent Admission Physical Exam Findings: withdrawal symptoms. - Treatment Hospital Course: Detox Protocol Followed, Detoxed Safely, Responded well, Discharged Condition Good - Medication Discharge Medications: Ambulatory Orders NK [No Known Home Medication] 09/02/19 - Diagnosis (1) Alcohol dependence with uncomplicated withdrawal Status: Acute (2) Dry skin Status: Chronic (3) HLD (hyperlipidemia) Status: Chronic (4) HTN (hypertension) Status: Acute (5) Tinea pedis Status: Acute (6) Uncomplicated opioid dependence without intoxication Status: Acute - AMA Did Patient Leave Against Medical Advice: No
== END 2019-10-22 09:22 | disposition home or self-care (01) | DRG 773 ==
LOC: YASAS 13:24 → Y3N 15:34
PROVIDERS: ADMIT Allergy & Immunology; ATTEND Allergy & Immunology
PROC: HZ2ZZZZ Detoxification Services for Substance Abuse Treatment (ICD-10-PCS; principal; 2019-10-17)
DX: F10.230 Alcohol dependence with withdrawal, uncomplicated (principal); F11.23 Opioid dependence with withdrawal; F41.8 Other specified anxiety disorders; F32.9 Major depressive disorder, single episode, unspecified; D64.9 Anemia, unspecified; I10 Essential (primary) hypertension; J45.909 Unspecified asthma, uncomplicated; E78.5 Hyperlipidemia, unspecified; B35.3 Tinea pedis; L85.3 Xerosis cutis; M25.561 Pain in right knee; M25.562 Pain in left knee; Z86.69 Personal history of other diseases of the nervous system and sense organs; Z91.018 Allergy to other foods
CPT/HCPCS: 36415; 80053; 83540; 83550; 85027; 86593; 87389; J0735

== ENCOUNTER 2020-08-02 12:43 | Inpatient (IN) | payer OTHER ==
[2020-08-02 13:27] VITALS: BMI 29.0
[2020-08-02] MEDS ORDERED: BISMUTH SUBSALICYLATE 262 MG/15 ML BTL PO PRN (14:07)
[2020-08-02] MEDS ORDERED: ACETAMINOPHEN 325 MG TABLET (FP) PO PRN ×2 (14:07)
[2020-08-02] MEDS ORDERED: MAGNESIUM CITRATE 300 ML BOTTLE PO PRN (14:07)
[2020-08-02] MEDS ORDERED: METHADONE HCL 10 MG TABLET (FOR DETOX USE ONLY) PO ONE (14:07)
[2020-08-02] MEDS ORDERED: ONDANSETRON *ODT* 4 MG TABLET SL PRN (14:07)
[2020-08-02] MEDS ORDERED: MENTHOL/PHENOL 1 EACH UD MM PRN (14:07)
[2020-08-02] MEDS ORDERED: MAG HYDROX/AL HYDROX/SIMETH 30 ML UNIT-DOSE CUP PO PRN (14:07)
[2020-08-02] MEDS: amLODIPine BESYLATE 10 MG TABLET (FP) PO SCH (14:34)
[2020-08-02] MEDS ORDERED: hydrOXYzine PAMOATE 25 MG CAPSULE (FP) PO SCH (18:00)
[2020-08-02 18:01] LABS: POTASSIUM 3.9 mmol/L (3.5-5.1)
[2020-08-02 18:03] LABS: CALCIUM 8.4 mg/dL (8.5-10.1)
[2020-08-02 18:04] LABS: ALBUMIN 3.6 g/dl (3.4-5.0); BLOOD UREA NITROGEN 27.1 mg/dL (7-18)
[2020-08-02 18:05] LABS: HEMATOCRIT 33.8 % (35.4-49); MCH 31.3 pg (25.7-33.7); MCHC 32.6 g/dl (32.0-35.9); MEAN CELL VOLUME 95.9 fl (80-96); MEAN PLT VOLUME 7.7 fl (7.5-11.1); PLATELET COUNT 321 K/MM3 (134-434); RBC 3.52 M/mm3 (4.00-5.60); RDW 15.2 % (11.9-15.9); WHITE BLOOD COUNT 5.1 K/mm3 (4.0-10.0)
[2020-08-02 18:07] LABS: CREATININE 2.3 mg/dL (0.55-1.3)
[2020-08-02 18:08] LABS: BILIRUBIN,TOTAL 0.2 mg/dL (0.2-1); TOT PROT 6.7 g/dl (6.4-8.2)
[2020-08-02] MEDS: IBUPROFEN 400 MG TABLET (FP) PO PRN (19:45)
[2020-08-02] MEDS ORDERED: MELATONIN 5 MG TABLETS PO SCH (22:00)
[2020-08-02] MEDS: THIAMINE HCL 100 MG TABLET (FP) PO SCH (22:01)
[2020-08-02] MEDS: MELATONIN 5 MG TABLETS PO PRN (22:03)
[2020-08-02] MEDS: METHOCARBAMOL 500 MG TABLET PO PRN (22:03)
[2020-08-02] MEDS: cloNIDine HCL 0.1 MG TABLET PO PRN (22:03)
[2020-08-03] MEDS: MAGNESIUM HYDROX 2400MG/30ML ORAL SUSPENSION 30 ML CUP PO PRN (05:01)
[2020-08-03] MEDS ORDERED: METHADONE HCL 5 MG TABLET (FOR DETOX USE ONLY) ONE (09:23)
[2020-08-03] MEDS ORDERED: METHADONE HCL 10 MG TABLET (FOR DETOX USE ONLY) ONE (09:23)
[2020-08-03] MEDS ORDERED: METHADONE (DETOX) 20 MG, METHADONE (DETOX) 5 MG PO ONE (10:00)
[2020-08-03] MEDS: PRENATAL VITAMINS W/ FOLIC ACID TABLET (FP) PO SCH (10:24)
[2020-08-03] MEDS: amLODIPine BESYLATE 10 MG TABLET (FP) PO SCH (10:24)
[2020-08-03] MEDS: hydrOXYzine PAMOATE 25 MG CAPSULE (FP) PO PRN ×2 (10:27→21:51)
[2020-08-03] MEDS: VITAMINS A AND D TOPICAL OINTMENT 60 GM TUBE TP SCH ×3 (13:51→23:02)
[2020-08-03] MEDS: THIAMINE HCL 100 MG TABLET (FP) PO SCH (21:51)
[2020-08-03] MEDS: cloNIDine HCL 0.1 MG TABLET PO PRN (21:51)
[2020-08-03] MEDS: MELATONIN 5 MG TABLETS PO PRN (21:51)
[2020-08-04] MEDS: MAGNESIUM HYDROX 2400MG/30ML ORAL SUSPENSION 30 ML CUP PO PRN (03:01)
[2020-08-04] MEDS ORDERED: P-EPHED 60MG/TRIPROLIDI 2.5MG TABLET PO PRN (03:08)
[2020-08-04] MEDS: VITAMINS A AND D TOPICAL OINTMENT 60 GM TUBE TP SCH ×4 (06:00→23:29)
[2020-08-04] MEDS: cloNIDine HCL 0.1 MG TABLET PO PRN (07:38)
[2020-08-04] MEDS ORDERED: METHADONE HCL 10 MG TABLET (FOR DETOX USE ONLY) PO ONE (10:00)
[2020-08-04] MEDS: PRENATAL VITAMINS W/ FOLIC ACID TABLET (FP) PO SCH (10:28)
[2020-08-04] MEDS: amLODIPine BESYLATE 10 MG TABLET (FP) PO SCH (10:29)
[2020-08-04 11:14] LABS: POTASSIUM 4.1 mmol/L (3.5-5.1)
[2020-08-04 11:15] LABS: BASO % 1.7 % (0-2.0); EOS % 6.3 % (0-4.5); HEMATOCRIT 30.9 % (35.4-49); HEMOGLOBIN 10.1 GM/dL (11.7-16.9); LYMPH % 39.4 % (8-40); MCH 31.1 pg (25.7-33.7); MCHC 32.7 g/dl (32.0-35.9); MEAN CELL VOLUME 95.1 fl (80-96); MEAN PLT VOLUME 7.9 fl (7.5-11.1); MONO % 14.5 % (3.8-10.2); NEUT % 38.1 % (42.8-82.8); PLATELET COUNT 282 K/MM3 (134-434); RBC 3.25 M/mm3 (4.00-5.60); RDW 14.9 % (11.9-15.9); WHITE BLOOD COUNT 3.7 K/mm3 (4.0-10.0)
[2020-08-04 11:17] LABS: ALBUMIN 3.2 g/dl (3.4-5.0); CALCIUM 8.5 mg/dL (8.5-10.1)
[2020-08-04 11:22] LABS: BILIRUBIN,TOTAL 0.2 mg/dL (0.2-1); TOT PROT 6.3 g/dl (6.4-8.2)
[2020-08-04] MEDS ORDERED: chlordiazePOXIDE HCL 25 MG CAPSULE PO PRN (11:54)
[2020-08-04] MEDS ORDERED: chlordiazePOXIDE HCL 25 MG CAPSULE PO ONE (11:54)
[2020-08-04] MEDS: TOLNAFTATE 1% CREAM 15 GM TUBE TP SCH ×2 (15:09→22:21)
[2020-08-04] MEDS: FERROUS SO4 325 MG TABLET (FP) PO SCH (17:41)
[2020-08-04] MEDS: chlordiazePOXIDE HCL 25 MG CAPSULE PO SCH ×2 (17:41→22:22)
[2020-08-04] MEDS: THIAMINE HCL 100 MG TABLET (FP) PO SCH (22:21)
[2020-08-04] MEDS: MELATONIN 5 MG TABLETS PO PRN (22:21)
[2020-08-04] MEDS: hydrOXYzine PAMOATE 25 MG CAPSULE (FP) PO PRN (22:24)
[2020-08-05] MEDS ORDERED: MASKS NR ONE (02:52)
[2020-08-05] MEDS: MAGNESIUM HYDROX 2400MG/30ML ORAL SUSPENSION 30 ML CUP PO PRN (02:53)
[2020-08-05] MEDS: chlordiazePOXIDE HCL 10 MG CAPSULE PO SCH ×4 (05:14→22:25)
[2020-08-05] MEDS: hydrOXYzine PAMOATE 25 MG CAPSULE (FP) PO PRN ×3 (05:14→20:35)
[2020-08-05] MEDS: IBUPROFEN 400 MG TABLET (FP) PO PRN ×2 (05:19→20:35)
[2020-08-05] MEDS: VITAMINS A AND D TOPICAL OINTMENT 60 GM TUBE TP SCH ×4 (05:20→23:25)
[2020-08-05] MEDS: FERROUS SO4 325 MG TABLET (FP) PO SCH ×3 (07:48→17:52)
[2020-08-05] MEDS ORDERED: METHADONE HCL 5 MG TABLET (FOR DETOX USE ONLY) ONE (09:24)
[2020-08-05] MEDS ORDERED: METHADONE HCL 10 MG TABLET (FOR DETOX USE ONLY) ONE (09:24)
[2020-08-05] MEDS ORDERED: METHADONE (DETOX) 10 MG, METHADONE (DETOX) 5 MG PO ONE (10:00)
[2020-08-05] MEDS: TOLNAFTATE 1% CREAM 15 GM TUBE TP SCH ×2 (10:06→22:25)
[2020-08-05] MEDS: amLODIPine BESYLATE 10 MG TABLET (FP) PO SCH (10:06)
[2020-08-05] MEDS: PRENATAL VITAMINS W/ FOLIC ACID TABLET (FP) PO SCH (10:06)
[2020-08-05] MEDS ORDERED: chlordiazePOXIDE HCL 10 MG CAPSULE PO PRN (12:00)
[2020-08-05] MEDS: MELATONIN 5 MG TABLETS PO PRN (22:23)
[2020-08-05] MEDS: THIAMINE HCL 100 MG TABLET (FP) PO SCH (22:25)
[2020-08-06] MEDS: MAGNESIUM HYDROX 2400MG/30ML ORAL SUSPENSION 30 ML CUP PO PRN (03:59)
[2020-08-06] MEDS: chlordiazePOXIDE HCL 10 MG CAPSULE PO SCH ×2 (05:16→17:27)
[2020-08-06] MEDS: VITAMINS A AND D TOPICAL OINTMENT 60 GM TUBE TP SCH ×4 (05:17→23:01)
[2020-08-06] MEDS: IBUPROFEN 400 MG TABLET (FP) PO PRN ×3 (05:18→21:34)
[2020-08-06] MEDS: FERROUS SO4 325 MG TABLET (FP) PO SCH ×3 (07:42→17:27)
[2020-08-06] MEDS ORDERED: METHADONE HCL 10 MG TABLET (FOR DETOX USE ONLY) PO ONE (10:00)
[2020-08-06] MEDS: TOLNAFTATE 1% CREAM 15 GM TUBE TP SCH ×2 (10:18→21:33)
[2020-08-06] MEDS: amLODIPine BESYLATE 10 MG TABLET (FP) PO SCH (10:19)
[2020-08-06] MEDS: PRENATAL VITAMINS W/ FOLIC ACID TABLET (FP) PO SCH (10:20)
[2020-08-06] MEDS ORDERED: cloNIDine HCL 0.1 MG TABLET PO ONE (12:26)
[2020-08-06] MEDS: cloNIDine HCL 0.1 MG TABLET PO SCH (21:33)
[2020-08-06] MEDS: THIAMINE HCL 100 MG TABLET (FP) PO SCH (21:33)
[2020-08-06] MEDS: hydrOXYzine PAMOATE 25 MG CAPSULE (FP) PO PRN (21:33)
[2020-08-06] MEDS: MELATONIN 5 MG TABLETS PO PRN (21:33)
[2020-08-07] MEDS ORDERED: chlordiazePOXIDE HCL 10 MG CAPSULE PO ONE (05:00)
[2020-08-07] MEDS: IBUPROFEN 400 MG TABLET (FP) PO PRN (05:18)
[2020-08-07] MEDS: METHOCARBAMOL 500 MG TABLET PO PRN (05:18)
[2020-08-07] MEDS ORDERED: METHADONE HCL 5 MG TABLET (FOR DETOX USE ONLY) PO ONE (06:00)
[2020-08-07] MEDS: VITAMINS A AND D TOPICAL OINTMENT 60 GM TUBE TP SCH (06:06)
[2020-08-07] MEDS ORDERED: MASKS NR ONE (07:30)
[2020-08-07] MEDS: FERROUS SO4 325 MG TABLET (FP) PO SCH (07:48)
[2020-08-07 09:27] VITALS: BP 143/88; PULSE 98; TEMP 97.7
[2020-08-07] MEDS: amLODIPine BESYLATE 10 MG TABLET (FP) PO SCH (10:22)
[2020-08-07] MEDS: cloNIDine HCL 0.1 MG TABLET PO SCH (10:22)
[2020-08-07] MEDS: TOLNAFTATE 1% CREAM 15 GM TUBE TP SCH (10:23)
[2020-08-07] MEDS: PRENATAL VITAMINS W/ FOLIC ACID TABLET (FP) PO SCH (10:23)
== END 2020-08-07 11:35 | disposition home or self-care (01) | DRG 773 ==
LOC: YASAS 12:43 → Y6N 13:54
PROVIDERS: ADMIT Allergy & Immunology; ATTEND Allergy & Immunology
PROC: HZ2ZZZZ Detoxification Services for Substance Abuse Treatment (ICD-10-PCS; principal; 2020-08-02)
DX: F11.23 Opioid dependence with withdrawal (principal); F10.20 Alcohol dependence, uncomplicated; F14.20 Cocaine dependence, uncomplicated; F41.9 Anxiety disorder, unspecified; F32.9 Major depressive disorder, single episode, unspecified; F90.9 Attention-deficit hyperactivity disorder, unspecified type; F19.282 Other psychoactive substance dependence with psychoactive substance-induced sleep disorder; I10 Essential (primary) hypertension; D64.9 Anemia, unspecified; R79.89 Other specified abnormal findings of blood chemistry; L98.8 Other specified disorders of the skin and subcutaneous tissue; E78.5 Hyperlipidemia, unspecified; R76.11 Nonspecific reaction to tuberculin skin test without active tuberculosis; Z91.018 Allergy to other foods; Z87.891 Personal history of nicotine dependence; Z56.0 Unemployment, unspecified
CPT/HCPCS: 36415; 80053; 85025; 85027; 86780; C9803; J0735; U0003

== ENCOUNTER 2021-04-12 18:22 | Inpatient (IN) | payer OTHER ==
[2021-04-12] MEDS ORDERED: MAG HYDROX/AL HYDROX/SIMETH 30 ML UNIT-DOSE CUP PO PRN (21:41)
[2021-04-12] MEDS ORDERED: ACETAMINOPHEN 325 MG TABLET (FP) PO PRN ×2 (21:41)
[2021-04-12] MEDS ORDERED: MAGNESIUM HYDROX 2400MG/30ML ORAL SUSPENSION 30 ML CUP PO PRN (21:41)
[2021-04-12] MEDS ORDERED: MENTHOL/PHENOL 1 EACH UD MM PRN (21:41)
[2021-04-12] MEDS ORDERED: METHOCARBAMOL 500 MG TABLET PO PRN (21:41)
[2021-04-12] MEDS ORDERED: IBUPROFEN 400 MG TABLET (FP) PO PRN (21:41)
[2021-04-12] MEDS ORDERED: MAGNESIUM CITRATE 300 ML BOTTLE PO PRN (21:41)
[2021-04-12] MEDS ORDERED: clonazePAM 0.5 MG ODT TABLETS SL PRN (21:41)
[2021-04-12] MEDS ORDERED: methaDONE HCL 10 MG TABLET (FOR DETOX USE ONLY) PO ONE (21:41)
[2021-04-12] MEDS ORDERED: NICOTINE 10 MG CARTRIDGE (INHALER) IH PRN (21:41)
[2021-04-12] MEDS ORDERED: cloNIDine HCL 0.1 MG TABLET PO PRN (21:41)
[2021-04-12] MEDS ORDERED: BISMUTH SUBSALICYLATE 524 MG/30 ML PO PRN (21:41)
[2021-04-12] MEDS ORDERED: ONDANSETRON *ODT* 4 MG TABLET SL PRN (21:41)
[2021-04-12] MEDS ORDERED: methaDONE HCL 10 MG TABLET (FOR DETOX USE ONLY) ONE (23:17)
[2021-04-12] MEDS: THIAMINE HCL 100 MG TABLET (FP) PO SCH (23:21)
[2021-04-12] MEDS: hydrOXYzine PAMOATE 25 MG CAPSULE (FP) PO SCH (23:21)
[2021-04-12] MEDS: MELATONIN 5 MG TABLETS PO SCH (23:21)
[2021-04-12 23:46] VITALS: BMI 31.1
[2021-04-13] MEDS: hydrOXYzine PAMOATE 25 MG CAPSULE (FP) PO SCH ×5 (06:59→23:21)
[2021-04-13] MEDS ORDERED: hydrOXYzine PAMOATE 25 MG CAPSULE (FP) PO ONE (11:40)
[2021-04-13] MEDS ORDERED: methaDONE HCL 10 MG TABLET (FOR DETOX USE ONLY) ONE (11:40)
[2021-04-13] MEDS: PRENATAL VITAMINS W/ FOLIC ACID TABLET (FP) PO SCH (11:48)
[2021-04-13] MEDS ORDERED: OXYMETAZOLINE 0.05% NASAL SOLUTION 15 ML BOTTLE NS PRN (13:22)
[2021-04-13] MEDS: MELATONIN 5 MG TABLETS PO SCH (23:20)
[2021-04-13] MEDS: THIAMINE HCL 100 MG TABLET (FP) PO SCH (23:20)
[2021-04-14] MEDS: hydrOXYzine PAMOATE 25 MG CAPSULE (FP) PO SCH ×5 (06:36→22:35)
[2021-04-14] MEDS ORDERED: methaDONE HCL 10 MG TABLET (FOR DETOX USE ONLY) PO ONE (10:00)
[2021-04-14] MEDS: PRENATAL VITAMINS W/ FOLIC ACID TABLET (FP) PO SCH (10:32)
[2021-04-14] MEDS ORDERED: amLODIPine BESYLATE 10 MG TABLET (FP) PO SCH (12:45)
[2021-04-14] MEDS: THIAMINE HCL 100 MG TABLET (FP) PO SCH (22:35)
[2021-04-14] MEDS: MELATONIN 5 MG TABLETS PO SCH (22:35)
[2021-04-15] MEDS: hydrOXYzine PAMOATE 25 MG CAPSULE (FP) PO SCH (05:41)
[2021-04-15 07:45] VITALS: BP 158/92; PULSE 76; TEMP 97.1
[2021-04-16] MEDS ORDERED: methaDONE HCL 10 MG TABLET (FOR DETOX USE ONLY) PO ONE (10:00)
== END 2021-04-15 08:38 | disposition left against medical advice (07) | DRG 770 ==
LOC: YASAS 18:22 → Y3N 04-13 17:15
PROVIDERS: ADMIT Allergy & Immunology; ATTEND Allergy & Immunology
PROC: HZ2ZZZZ Detoxification Services for Substance Abuse Treatment (ICD-10-PCS; principal; 2021-04-13)
DX: F11.23 Opioid dependence with withdrawal (principal); F41.9 Anxiety disorder, unspecified; F32.9 Major depressive disorder, single episode, unspecified; E78.5 Hyperlipidemia, unspecified; I10 Essential (primary) hypertension
CPT/HCPCS: J0735

== ENCOUNTER 2024-04-01 10:10 | Inpatient (IN) | payer OTHER ==
[2024-04-01 10:47] VITALS: BMI 35.9
[2024-04-01] MEDS ORDERED: ONDANSETRON *ODT* 4 MG TABLET SL PRN (12:36)
[2024-04-01] MEDS ORDERED: MAGNESIUM HYDROX 2400MG/30ML ORAL SUSPENSION 30 ML CUP PO PRN (12:36)
[2024-04-01] MEDS ORDERED: NALOXONE HCL 0.4 MG/ML VIAL IM PRN (12:36)
[2024-04-01] MEDS ORDERED: IBUPROFEN 400 MG TABLET (FP) PO PRN (12:36)
[2024-04-01] MEDS ORDERED: guaiFENesin 600 MG TABLET.ER (FP) PO PRN (12:36)
[2024-04-01] MEDS ORDERED: hydrOXYzine PAMOATE 25 MG CAPSULE (FP) PO PRN (12:36)
[2024-04-01] MEDS ORDERED: POLYETHYLENE GLYCOL (HEALTHYLAX) 3350 17 GM PACKET PO PRN (12:36)
[2024-04-01] MEDS ORDERED: BENZOCAINE/MENTHOL (CHLORASEPTIC ) LOZENGE MM PRN (12:36)
[2024-04-01] MEDS ORDERED: LOPERAMIDE HCL 2 MG CAPSULE PO PRN (12:36)
[2024-04-01] MEDS ORDERED: BENZONATATE 200 MG CAPSULE PO PRN (12:36)
[2024-04-01] MEDS ORDERED: BISMUTH SUBSALICYLATE 524 MG/30 ML PO PRN (12:36)
[2024-04-01] MEDS ORDERED: MAG HYDROX/AL HYDROX/SIMETH 30 ML UNIT-DOSE CUP PO PRN (12:36)
[2024-04-01] MEDS ORDERED: DICYCLOMINE HCL 10 MG CAPSULE PO PRN (12:36)
[2024-04-01] MEDS ORDERED: NALOXONE (NARCAN) HCL 4 MG/0.1 ML SPRAY NS PRN (12:36)
[2024-04-01] MEDS ORDERED: ALBUTEROL SO4 HFA INHALER IH PRN (12:42)
[2024-04-01] MEDS: metFORMIN HCL 500 MG TABLET (FP) PO ONE (14:11)
[2024-04-01 16:25] LABS: HIV INTERPRETATION NEGATIVE (NEGATIVE)
[2024-04-01] MEDS: MELATONIN 5 MG TABLETS PO SCH (22:15)
[2024-04-01] MEDS: THIAMINE 100 MG TABLET PO SCH (22:15)
[2024-04-02] MEDS: amLODIPine BESYLATE 5 MG TABLET (FP) PO ONE (00:03)
[2024-04-02] MEDS: METHOCARBAMOL 500 MG TABLET PO PRN (05:31)
[2024-04-02] MEDS: metFORMIN HCL 500 MG TABLET (FP) PO SCH (06:28)
[2024-04-02] MEDS: ACETAMINOPHEN 325 MG TABLET (FP) PO PRN (08:35)
[2024-04-02] MEDS: MONTELUKAST NA 10 MG TABLET PO SCH (09:54)
[2024-04-02] MEDS: ATORVASTATIN CA 40 MG TABLET (FP) PO SCH (09:54)
[2024-04-02] MEDS: LOSARTAN POTASSIUM 25 MG TABLET PO SCH (09:54)
[2024-04-02] MEDS: FERROUS SO4 325 MG TABLET (FP) PO SCH (09:54)
[2024-04-02] MEDS: methaDONE HCL 10 MG TABLET (FOR DETOX USE ONLY) PO ONE (09:55)
[2024-04-02] MEDS: PRENATAL VITAMINS W/ FOLIC ACID TABLET (FP) PO SCH (09:58)
[2024-04-02 10:33] LABS: HEMOGLOBIN 11.8 GM/dL (11.7-16.9); MCH 30.6 pg (25.7-33.7); MCHC 32.7 g/dl (32.0-35.9); MEAN CELL VOLUME 93.5 fl (80-96); MEAN PLT VOLUME 7.5 fl (7.5-11.1); PLATELET COUNT 301 10^3/uL (134-434); RBC 3.85 M/mm3 (4.00-5.60); RDW 15.7 % (11.9-15.9); WHITE BLOOD COUNT 4.4 K/mm3 (4.0-10.0)
[2024-04-02 10:35] LABS: POTASSIUM 4.1 mmol/L (3.5-5.1)
[2024-04-02 10:38] LABS: CALCIUM 8.7 mg/dL (8.5-10.1)
[2024-04-02 10:39] LABS: ALBUMIN 3.4 g/dl (3.4-5.0); BLOOD UREA NITROGEN 12.4 mg/dL (7-18)
[2024-04-02 10:42] LABS: CREATININE 1.4 mg/dL (0.55-1.3)
[2024-04-02 10:43] LABS: BILIRUBIN,TOTAL 0.2 mg/dL (0.2-1); TOT PROT 6.8 g/dl (6.4-8.2)
[2024-04-02] MEDS: cloNIDine HCL 0.1 MG TABLET PO PRN (17:27)
[2024-04-02] MEDS: IBUPROFEN 600 MG TABLET (FP) PO PRN (17:27)
[2024-04-02] MEDS: SUVOREXANT 10 MG TABLET PO PRN (22:42)
[2024-04-03] MEDS ORDERED: ALBUTEROL SO4 HFA INHALER IH PRN (08:41)
[2024-04-03] MEDS ORDERED: methaDONE HCL 10 MG TABLET PO ONE (08:43)
[2024-04-03] MEDS: ATORVASTATIN CA 40 MG TABLET (FP) PO SCH (10:19)
[2024-04-03] MEDS: methaDONE HCL 10 MG TABLET PO PRN (10:41)
[2024-04-03] MEDS: methaDONE HCL 10 MG TABLET PO ONE (10:41)
[2024-04-04] MEDS: INSULIN ASPART SLIDING SCALE (NOVOLOG) 1 VIAL SQ SCH (06:19)
[2024-04-04] MEDS: methaDONE 40 MG, methaDONE 10 MG PO ONE (09:11)
[2024-04-04] MEDS: LOSARTAN POTASSIUM 50 MG TABLET PO SCH (09:11)
[2024-04-04] MEDS ORDERED: methaDONE HCL 10 MG TABLET (FOR DETOX USE ONLY) PO ONE (10:00)
[2024-04-04] MEDS: SUVOREXANT 20 MG TABLET PO PRN (22:32)
[2024-04-05] MEDS: methaDONE 40 MG, methaDONE 20 MG PO ONE (09:35)
[2024-04-05] MEDS: LOSARTAN POTASSIUM 25 MG TABLET PO SCH (09:36)
[2024-04-06] MEDS: methaDONE 40 MG, methaDONE 30 MG PO ONE (09:31)
[2024-04-06] MEDS: LOSARTAN POTASSIUM 50 MG TABLET PO SCH (09:33)
[2024-04-06] MEDS ORDERED: methaDONE HCL 10 MG TABLET (FOR DETOX USE ONLY) PO ONE (10:00)
[2024-04-06] MEDS: amLODIPine BESYLATE 2.5 MG TABLET (FP) PO SCH (14:20)
[2024-04-06] MEDS: ATORVASTATIN CA 40 MG TABLET (FP) PO SCH (22:08)
[2024-04-07] MEDS: LOSARTAN POTASSIUM 50 MG TABLET PO SCH (09:24)
[2024-04-07] MEDS: methaDONE HCL 40 MG DISPERSABLE TABLET PO ONE (09:25)
[2024-04-07] MEDS: FERROUS SO4 325 MG TABLET (FP) PO SCH (09:25)
[2024-04-07] MEDS: MONTELUKAST NA 10 MG TABLET PO SCH (09:25)
[2024-04-07] MEDS: amLODIPine BESYLATE 2.5 MG TABLET (FP) PO SCH (09:25)
[2024-04-07 09:41] VITALS: BP 157/82; PULSE 72; RESP 16; TEMP 98.2
[2024-04-07] MEDS ORDERED: methaDONE HCL 40 MG DISPERSABLE TABLET PO ONE (10:00)
== END 2024-04-07 09:30 | disposition home or self-care (01) | DRG 773 ==
LOC: YASAS 10:10 → Y6N 13:06
PROVIDERS: ADMIT Allergy & Immunology; ATTEND Surgery
PROC: HZ2ZZZZ Detoxification Services for Substance Abuse Treatment (ICD-10-PCS; principal; 2024-04-01)
DX: F11.23 Opioid dependence with withdrawal (principal); F14.20 Cocaine dependence, uncomplicated; F90.9 Attention-deficit hyperactivity disorder, unspecified type; F32.9 Major depressive disorder, single episode, unspecified; F19.982 Other psychoactive substance use, unspecified with psychoactive substance-induced sleep disorder; F19.94 Other psychoactive substance use, unspecified with psychoactive substance-induced mood disorder; I10 Essential (primary) hypertension; E11.9 Type 2 diabetes mellitus without complications; E78.5 Hyperlipidemia, unspecified; D50.9 Iron deficiency anemia, unspecified; J45.909 Unspecified asthma, uncomplicated; Z87.891 Personal history of nicotine dependence; Z62.810 Personal history of physical and sexual abuse in childhood; Z86.11 Personal history of tuberculosis; Z56.0 Unemployment, unspecified
CPT/HCPCS: 36415; 71046-TC-FY; 80053; 80305; 80307; 82962; 83036; 85027; 86780; 86803; 87389; 93005; 93010